=== PATIENT | male | born 2000 | race Caucasian/White ===

== ENCOUNTER 2020-07-14 12:04 | Emergency (ER) | payer OTHER ==
[~2020-07-14] VITALS: Ht 172.7 cm; Wt 72.7 kg
[2020-07-14] MEDS ORDERED: LIDOCAINE 5% (LIDODERM) PATCH TD ONE (12:40)
--- NOTE | 2020-07-14 13:23 | REP ---
INDICATION: low back pain; lifting injury COMPARISON: None. TECHNIQUE: AP, lateral, bilateral oblique, and coned-down views of the lumbar spine. FINDINGS: Alignment and lordosis maintained. Vertebral bodies are intact. Disc spaces are relatively normal/age-appropriate. No acute fracture/compression injury or subluxation. No obvious spondylolysis or spondylolisthesis.. IMPRESSION: Normal Lumbosacral Spine series. <Electronically signed by Michoacano Crane > 07/14/20 [id number]
[2020-07-14] MEDS ORDERED: ROBA750T4 PO (14:10)
[2020-07-14] MEDS ORDERED: PRED10TA2 PO (14:10)
[2020-07-14 14:31] VITALS: BP 130/82
[2020-07-14] MEDS ORDERED: **NOTE PATIENT COMMENT** MISC XX SCH (21:00)
== END 2020-07-14 14:39 | disposition home or self-care (01) ==
LOC: M ED 12:04
DX: S39.012A Strain of muscle, fascia and tendon of lower back, initial encounter (principal); X50.0XXA Overexertion from strenuous movement or load, initial encounter; Y92.89 Other specified places as the place of occurrence of the external cause; Y93.9 Activity, unspecified; Y99.1 Military activity